=== PATIENT | female | born 1995 | race Caucasian/White ===

== ENCOUNTER → 2016-08-18 | Outpatient (CLI) | payer BC, OTHER ==
[2016-08-18 13:50] LABS: CH 30.6; CHCM 33.8; HCT 41.8 % (34.0-46.0); HDW 2.41; HGB 13.8 gm/dL (11.4-16.0); MCH 30.1 pg (25.0-35.0); MCHC 33.1 g/dL (31.0-37.0); MCV 90.8 fL (80.0-100.0); Mean Platelet Volume 6.8; RDW 12.3 % (11.5-15.5); WBC 7.4 k/uL (3.8-10.6)
[2016-08-18 16:06] LABS: Erythrocyte Sedimentation Rate 8 mm/hr (0-20)
[2016-08-19 14:01] LABS: Gliadin AB IgA, Deaminated 3 UNITS (<20); Gliadin AB IgG, Deaminated 4 UNITS (<20)
== END | disposition home or self-care (01) ==
LOC: LABWHC1 12:33
PROVIDERS: ATTEND Internal Medicine Gastroenterology
DX: R11.2 Nausea with vomiting, unspecified (principal)
CPT/HCPCS: 36415; 83516; 85027; 85652; 86140

== ENCOUNTER 2018-10-20 20:20 | Outpatient (CLI) | payer BC, OTHER ==
[2018-10-20 20:54] VITALS: BP 137/89; PULSE 83; RESP 16; TEMP 98.5
--- NOTE | 2018-10-30 07:47 | P.MSEPDOC ---
Presenting Problems - Arrival Data Date of Arrival on Unit: 10/20/18 Time of Arrival on Unit: 20:16 Mode of Transport: Ambulatory - Complaint OB-Reason for Admission/Chief Complaint: Pain Comment: pt was at work, a resident fell in to her abd and pt has had pain ever since Medical History - Information : 1 Para: 0 Term: 0 : 0 Abortions: Spontaneous or Elective: 0 Number of Living Children: 0 - Gestational Age Gestational Age by ROB (wks/days): 24 Weeks and 4 Days Review of Systems - Review of Systems Constitutional: No problems Breast: No problems ENT: No problems Cardiovascular: No problems Respiratory: No problems Gastrointestinal: No problems Genitourinary: No problems Musculoskeletal: No problems Neurological: No problems Skin: No problems Vital Signs - Temperature Temperature: 98.5 F Temperature Source: Temporal Artery Scan - Pulse Right Pulse Rate: 83 Pulse Assessment Method: Automatic Cuff - Respirations Respiratory Rate: 16 O2 Sat by Pulse Oximetry: 98 - Blood Pressure Right Arm Blood Pressure: 137/89 Blood Pressure Mean: 105 Blood Pressure Source: Automatic Cuff Medical Screen Scoring (Pre) - Cervical Exam Dilation: Exam Deferred Effacement: Exam Deferred - Uterine Contractions Frequency: N/A Duration: N/A Intensity: N/A - Maternal Vital Signs Maternal Temperature: N/A Maternal Blood Pressure: N/A Signs of Preeclampsia: N/A Maternal Respirations: N/A - Pain Assessment Pain Location and Character: Right, Abdomen Pain Scale Used: Numeric (1 - 10) Pain Intensity: 5 Pain Management Goal: 3 Pain Description: *Acute, Sore, Tender Pain Radiation Location: 0 Pain Frequency: Constant Pain Duration: 4 Pain Duration Units: Hours Pain Behavior: Vocalization Pain Aggravating Factors: None Pharmacological Interventions: PRN Medication - Maternal Trauma Maternal Trauma: N/A - Assessment Heart Rate - NICHD Category: Category I (Normal) = 0 - Total Score Total Score (Pre): 0 Physician Notification (Pre) - Physician Notified Physician Notified Date: 10/20/18 Physician Notified Time: 20:35 Physician/Practitioner Notifed:: Dr Pabon - Notification Comment Comment: spoke with Dr pabon. reported on pts c/o, pain since 0. no bleeding or leaking, +fm, no cntrx per pt or toco, abd soft and non tender. orders to keep on efm for 20 mins, and toco another 20 mins. pt may be d/c'd home with instructions after 40 mins. keep scheduled appt in office Disposition - Disposition OB Disposition: Discharge to home Discharge Date: 10/20/18 Discharge Time: 21:15 I agree with the RN Medical Screening Exam: Yes Risk & Benefit of care provided described in d/c instruction: Yes Diagnosis: UNSPECIFIED ABDOMINAL PAIN
== END 2018-10-20 21:15 | disposition home or self-care (01) ==
LOC: FBPOP 20:20
PROVIDERS: ATTEND Obstetrics & Gynecology
DX: O99.89 Other specified diseases and conditions complicating pregnancy, childbirth and the puerperium (principal); R10.9 Unspecified abdominal pain; Z3A.24 24 weeks gestation of pregnancy
CPT/HCPCS: 99213

== ENCOUNTER 2018-12-05 12:09 | Outpatient (CLI) | payer BC, OTHER ==
[2018-12-05 12:40] VITALS: BP 128/88; PULSE 112; RESP 18; TEMP 99.6
--- NOTE | 2018-12-14 17:12 | P.MSEPDOC ---
Presenting Problems - Arrival Data Date of Arrival on Unit: 12/05/18 Time of Arrival on Unit: 12:19 Mode of Transport: Ambulatory - Complaint OB-Reason for Admission/Chief Complaint: Other Comment: pt arrived to triage c/o pinkish dicharge when she wiped at 0130. than later in the day she noticed bright red blood and c/o cramping. pt did not wear a bj pad in and no blood noted in underwear. pt also c/o decreased movement Medical History - Information : 1 Para: 0 Term: 0 : 0 Abortions: Spontaneous or Elective: 0 Number of Living Children: 0 - Gestational Age Gestational Age by ROB (wks/days): 31 Weeks and 1 Days - History Complications: GDM Review of Systems - Review of Systems Constitutional: No problems Breast: No problems ENT: No problems Cardiovascular: No problems Respiratory: No problems Gastrointestinal: Diarrhea Genitourinary: No problems Musculoskeletal: No problems Neurological: No problems Skin: No problems Vital Signs - Temperature Temperature: 99.6 F Temperature Source: Oral - Pulse Right Brachial Pulse Rate: 112 Pulse Assessment Method: Automatic Cuff - Respirations Respiratory Rate: 18 Oxygen Delivery Method: Room Air O2 Sat by Pulse Oximetry: 97 - Blood Pressure Right Arm Blood Pressure: 128/88 Blood Pressure Mean: 101 Blood Pressure Source: Automatic Cuff Medical Screen Scoring (Pre) - Cervical Exam Dilation: 0 cm = 0 Membranes: Intact - Uterine Contractions Frequency: N/A Duration: N/A Intensity: Contraction palpated strong = 1 - Maternal Vital Signs Maternal Temperature: N/A Maternal Blood Pressure: N/A Signs of Preeclampsia: Headache = 1 Maternal Respirations: N/A - Pain Assessment Pain Location and Character: Head Pain Scale Used: Numeric (1 - 10) Pain Intensity: 5 Pain Management Goal: 2 Pain Description: Pressure Pain Radiation Location: n/a Pain Frequency: Occasional Pain Duration: 45 Pain Duration Units: Minutes Pain Behavior: Vocalization Pain Aggravating Factors: Anxiety Non-Pharmacological Interventions: Reduce Environmental Stimuli - Maternal Trauma Maternal Trauma: N/A - Total Score Total Score (Pre): 2 Medical Screen Scoring (Post) - Assessment Heart Rate: 140 Heart Rate - NICHD Category: Category I (Normal) = 0 NST: Reactive Position: N/A - Total Score Total Score (Post): 0 - Post Treatment Level of Risk Post Treatment Level of Risk: Low (0-5) Physician Notification (Post) - Physician Notified Physician Notified Date: 12/05/18 Physician Notified Time: 13:00 Spoke With: dr ana Gaines Order Received: Yes - Notification Comment Comment: reactive nst no active bleeding noted . cervix closed Disposition - Disposition OB Disposition: Discharge to home Discharge Date: 12/05/18 Discharge Time: 13:54 I agree with the RN Medical Screening Exam: Yes Risk & Benefit of care provided described in d/c instruction: Yes Diagnosis: ANTEPARTUM HEMORRHAGE, UNSPECIFIED, THIRD TRIMESTER
== END 2018-12-05 13:54 | disposition home or self-care (01) ==
LOC: FBPOP 12:09
PROVIDERS: ATTEND Obstetrics & Gynecology
DX: O46.93 Antepartum hemorrhage, unspecified, third trimester (principal); Z3A.31 31 weeks gestation of pregnancy
CPT/HCPCS: 59025; 99213

== ENCOUNTER 2019-01-25 11:33 | Inpatient (IN) | payer BC, OTHER ==
--- NOTE | 2019-01-25 12:47 | US ---
EXAMINATION TYPE: US OB BPP wo non-stress DATE OF EXAM: 01/25/2019 COMPARISON: NONE CLINICAL HISTORY: 23-year-old female non reactive nst. Decreased movement for 1 week but especially t alex, GD EXAM PERFORMED: Transabdominal (TA) FINDINGS: BPP PARAMETERS: PRESENTATION: Vertex HEART RATE: 150 bpm RHYTHM: Normal RAHEEL: 9.7cm DIAPHRAGM IMAGED: yes BPP SCORIN. Breathin (1 episode of breathing of 30 second duration in 30 minutes of scanning time) 2. Movement: 0 (at least 3 discrete body movements in 30 minutes) 3. Tone: 0, only saw big toe flex, not entire foot (1 episode of active flexion/extension of limb) 4. RAHEEL: 9.7cm (RAHEEL index > 5cm) IMPRESSION: TOTAL biophysical profile SCORE: 4 / 8 Lining Repairer notes: BERNARDINO Kam was aware of lack of movement/tone; told I could stop test 9 mins short
[2019-01-25] MEDS ORDERED: TERBUTALINE 1 MG/ML VIAL SQ PRN (13:53)
[2019-01-25] MEDS ORDERED: CARBOPROST TROMETHAMINE 250 MCG/ML 1 ML AMP IM PRN (13:53)
[2019-01-25] MEDS ORDERED: LIDOCAINE 0.5% (PF) 5 MG/ML (50 ML SDV) SQ PRN (13:53)
[2019-01-25] MEDS ORDERED: METHYLERGONOVINE 0.2 MG/ML 1 ML AMP IM PRN (13:53)
[2019-01-25] MEDS ORDERED: OXYTOCIN 10 UNIT/ML 1 ML VIAL IM PRN (13:53)
[2019-01-25 14:00] VITALS: BMI 35.5
[2019-01-25] MEDS ORDERED: OXYTOCIN 30 UNITS/500 ML NS 30 UNIT in SALINE 1 500ML.BAG IV SCH (14:00)
[2019-01-25 14:22] LABS: Glucose,Whole Blood 74 mg/dL (75-99)
[2019-01-25] MEDS: LACTATED RINGERS 1,000 ML IV SCH ×2 (14:34→22:30)
[2019-01-25 15:22] LABS: Basophils % (A) 0 %; Eosinophils % (A) 1 %; HCT 39.4 % (34.0-46.0); HGB 13.2 gm/dL (11.4-16.0); Lymphocytes # (A) 1.6 k/uL (1.0-4.8); Lymphocytes % (A) 18 %; MCH 32.5 pg (25.0-35.0); MCHC 33.5 g/dL (31.0-37.0); MCV 96.9 fL (80.0-100.0); Mean Platelet Volume 7.1; Monocytes # (A) 0.4 k/uL (0-1.0); Monocytes % (A) 5 %; Neutrophils # (A) 6.4 k/uL (1.3-7.7); Neutrophils % (A) 75 %; Platelet Count 226 k/uL (150-450); RBC 4.06 m/uL (3.80-5.40); RDW 12.7 % (11.5-15.5); WBC 8.5 k/uL (3.8-10.6)
[2019-01-25] MEDS ORDERED: ROPIVACAINE 5MG/ML 20ML VIAL ONE (23:37)
[2019-01-25] MEDS ORDERED: fentaNYL (PF) 50 MCG/ML 5 ML AMP ONE (23:37)
[2019-01-25] MEDS ORDERED: SODIUM CHLORIDE 0.9% 100 ML BAG ONE (23:37)
[2019-01-26] MEDS: LACTATED RINGERS 1,000 ML IV SCH ×2 (00:17→06:20)
[2019-01-26] MEDS ORDERED: CITRIC ACID-SODIUM CITRATE 15 ML CUP PO ONE ×2 (03:28→03:34)
[2019-01-26] MEDS ORDERED: ceFAZolin IN SWFI 2 GM/20 ML SYRINGE IVP ONE (03:34)
[2019-01-26] MEDS ORDERED: OXYTOCIN 10 UNIT/ML 1 ML VIAL ONE (03:47)
[2019-01-26] MEDS ORDERED: fentaNYL (PF) 50 MCG/ML 2 ML AMP ONE (03:47)
[2019-01-26] MEDS ORDERED: LIDOCAINE HCL/PF 20 MG/ML 10 ML AMP ONE (03:47)
[2019-01-26] MEDS ORDERED: MORPHINE SULFATE (PF) 0.3 MG/0.3 ML SYR ONE (03:47)
[2019-01-26] MEDS ORDERED: ONDANSETRON 4 MG/2 ML VIAL ONE (03:47)
[2019-01-26] MEDS ORDERED: METOCLOPRAMIDE 5 MG/ML 2 ML VIAL IVP PRN (04:36)
[2019-01-26] MEDS ORDERED: ONDANSETRON 4 MG/2 ML VIAL IVP PRN (04:36)
[2019-01-26] MEDS ORDERED: diphenhydrAMINE 50 MG/ML 1 ML VIAL IVP PRN ×3 (04:36→11:03)
[2019-01-26] MEDS ORDERED: ACETAMINOPHEN TAB 325 MG TAB PO PRN (04:36)
[2019-01-26] MEDS ORDERED: diphenhydrAMINE 25 MG CAP PO PRN (04:36)
[2019-01-26] MEDS ORDERED: HYDROcodone/APAP 7.5-325MG 1 EACH TAB PO PRN (04:36)
[2019-01-26] MEDS ORDERED: ZOLPIDEM 5 MG TAB PO PRN (04:36)
[2019-01-26] MEDS ORDERED: NALOXONE 0.4 MG/ML 1 ML VIAL IV PRN ×2 (04:36→11:03)
[2019-01-26] MEDS ORDERED: diphenhydrAMINE 50 MG CAP PO PRN (04:36)
--- NOTE | 2019-01-26 04:40 | P.HPOB ---
History of Present Illness H&P Date: 01/26/19 Chief Complaint: Intrauterine at term: Gestation diabetes: BPP 4 out of 8 Nemo is a 23-year-old at 38 and 3 who is in my office and had a nonstress test was nonreactive. While she did have phop-ih-baoq variability and a few small accelerations did not really meet criteria for reactivity. She was sent to labor and delivery for further monitoring, when she still not have any reactivity a by physical profile was done and was 4 out of 10. She had a long discussion on options and due to the fact that the NST was not reactive. Biophysical profile was only 4 out of 8 decision to move forward with induction of labor was made she was dilated to 1/2 cm 7080% effaced and -2 station. Artificial rupture membranes was then performed with clear fluid noted. Her Precis course has been, complicated by gestational diabetes for which she was diet-controlled, but did manage through maternal- medicine. Otherwise she relates no significant competitions or problems with the and all questions were answered for her at this time. Pertinent labs fluid A+ blood type, rubella immune, hepatitis B surface antigen was negative as was group B strep. On physical exam vital signs are stable and afebrile. Heart regular, lungs clear, extremities are without pain. Abdomen soft and gravid uterus is noted. A category 2 tracing is noted with continued good dndp-aa-hope variability and some tenderness 10 accelerations intermittently. No decelerati ons are noted the time of admission. Past Medical History Past Medical History: GERD/Reflux Additional Past Medical History / Comment(s): herpes S2, History of Any Multi-Drug Resistant Organisms: None Reported Past Surgical History: Adenoidectomy, Cholecystectomy, Tonsillectomy Past Anesthesia/Blood Transfusion Reactions: No Reported Reaction Past Psychological History: No Psychological Hx Reported Smoking Status: Never smoker Past Alcohol Use History: None Reported Past Drug Use History: None Reported - Past Family History Father History Unknown: Yes Family Medical History: No Reported History Medications and Allergies Home Medications Medication Instructions Recorded Confirmed Type Pnv,Calcium 72/Iron/Folic Acid 1 each PO DAILY 10/20/18 01/25/19 History [ Plus Tablet] Allergies Allergy/AdvReac Type Severity Reaction Status Date / Time azithromycin [From Zithromax] Allergy Nausea & Verified 06/28/19 13:55 Vomiting & Diarrhea butalbital Allergy Anaphylaxis Verified 01/25/19 13:55 latex Allergy Rash/Hives Verified 01/25/19 13:55 valacyclovir HCl Allergy Unknown Verified 01/25/19 13:55 [From Valtrex] Exam Osteopathic Statement: *. No significant issues noted on an osteopathic structural exam other than those noted in the History and Physical/Consult. Intake and Output 01/25/19 01/25/19 01/26/19 14:59 22:59 06:59 Other: # Voids 1 2 Weight 93.894 kg - OBG Physical Exam Breast: both: normal (no masses) Abdomen: bowel sounds normal, no diffuse tenderness, no bruit present, no guarding noted, no hepatomegaly, no splenomegaly, no mass Vulva: both: normal Vagina: normal moisture, no discharge Cervix: no lesion, no discharge Uterus: normal size, normal contour Adnexa: both: normal Anus/Rectum: normal perianal skin, no rectal mass, no hemorrhoids, heme negative Results Result Diagrams: 01/25/19 15:00 Abnormal Lab Results - Last 24 Hours (Table) 01/25/19 Range/Units 14:11 POC Glucose (mg/dL) 74 L (75-99) mg/dL
--- NOTE | 2019-01-26 04:46 | P.OP ---
Date of Procedure: 01/26/19 Preoperative Diagnosis: Intrauterine at term: Gestational diabetes: Nonreassuring heart tones with failure to dilate Postoperative Diagnosis: Same Procedure(s) Performed: Primary low transverse section from Pfannenstiel Anesthesia: epidural Surgeon: Blair Blandon Biodiesel Production Technician #1: Beryl Munson Estimated Blood Loss (ml): 500 IV fluids (ml): 700 Urine output (ml): 300 Pathology: other (Placenta) Condition: stable Disposition: floor Operative Findings: It is noted that following her epidural she had 1 prolonged deceleration lasting only approximately 3-4 minutes and return to baseline. However in the next couple of hours she made no further cervical change from 4-40 cm dilated and there was slow rise in the baseline heart rate to the 150s. There was minimal salx-lw-vnjm variability when the heart rate was noted except during contractions it appeared she was having some mild decelerations from the baseline of 150 down to the 130s. A prescription/benefits/alternatives to carla ji section were reviewed with the patient in detail and all questions were answered for her prior to proceeding to the operative room. Description of Procedure: Patient was taken to the operating room where a epidural anesthetic was found be adequate. She was prepped and draped in normal sterile fashion and placed in the dorsal supine position with leftward tilt. Initially a Pfannenstiel skin incision was made and this incision was then carried through to the underlying layer of the fascia was second knife. Fascia was then nicked in the midline and this opening was extended laterally with Li scissors. Superior and inferior aspect of this incision were then grasped tented up and bluntly and sharply dissected off the rectus muscles. Rectus muscles were then divided the midline and blunt dissection the peritoneum was made. This opening was then extended superiorly and inferiorly with good visualization of both bowel and bladder. Bladder blade was then placed bladder flap identified and entered with Metzenbaum scissors. This opening was then extended across the face of the uterus and the bladder flap was digitally created. Knife was then used to in cise uterus and this opening was fully developed with hemostat and then extended bluntly. Head was then atraumatically delivered from right occiput anterior position and once head was delivered mouth nares were bulb suctioned anterior posterior shoulders were easily delivered with gentle traction followed by the remainder the baby. Nursery personnel was then present to assume care and the umbilical cord was clamped and cut in usual fashion. Placenta was then delivered intact and Pitocin was added to the IV. Uterus was then exteriorized cleared of clots and debris and closed in 2 layers with 0 Vicryl suture. Once excellent hemostasis was obtained blood and debris was suctioned from the posterior cul-de-sac. Uterus was then reinserted into the abdomen and the peritoneum was closed with 3-0 Vicryl. Fascial layer was then closed Lobac suture. 3-0 Vicryl was then used to reapproximate the skin patient tolerated surgery very well. Sponge, lap, needle counts were all correct 2. Patient was then taken to the recovery room in stable and satisfactory condition. scores were 8 and 9 at one and 5 minutes respectively and the weight was 6 lbs. 12 oz. and skin was closed with 3-0 Vicryl subcuticularly. Patient tolerated the surgery very well. Sponge, lap, needle counts were all correct 2. She did deliver a viable female with scores 8 and 9 at one and 5 minutes respectively and the weight was 6 lbs. 12 oz. both mother and baby are stable following delivery.
[2019-01-26] MEDS ORDERED: OXYTOCIN 20 UNITS/1000 ML NS 1,000 ML IV SCH (06:15)
[2019-01-26] MEDS: KETOROLAC 30 MG/ML 1 ML VIAL IVP PRN ×2 (07:54→13:50)
[2019-01-26] MEDS: SENNOSIDES-DOCUSATE SODIUM 1 EACH TAB PO SCH ×2 (11:27→19:50)
--- NOTE | 2019-01-26 14:03 | P.MSEPDOC ---
Presenting Problems - Arrival Data Date of Arrival on Unit: 01/25/19 Time of Arrival on Unit: 11:30 Mode of Transport: Portable - Complaint Comment: pt sent over from office for a biophysical due to a non reactive nst in office Medical History - Information : 1 Para: 0 Term: 0 : 0 Abortions: Spontaneous or Elective: 0 Number of Living Children: 0 - Gestational Age Gestational Age by ROB (wks/days): 38 Weeks and 3 Days Vital Signs - Temperature Temperature: 99.1 F Temperature Source: Oral - Pulse Pulse Oximetery Pulse Rate: 80 Pulse Assessment Method: Pulse Oximetry - Respirations Respiratory Rate: 16 Oxygen Delivery Method: Room Air O2 Sat by Pulse Oximetry: 98 - Blood Pressure Right Arm Blood Pressure: 118/65 Blood Pressure Mean: 82 Blood Pressure Source: Automatic Cuff Disposition - Disposition OB Disposition: Admit I agree with the RN Medical Screening Exam: Yes Risk & Benefit of care provided described in d/c instruction: Yes Diagnosis: RELATED CONDITIONS, UNSPECIFIED, THIRD TRIMESTER (non reassuring fht)
[2019-01-27] MEDS: IBUPROFEN 600 MG TAB PO PRN ×3 (01:26→20:29)
--- NOTE | 2019-01-27 06:58 | P.PN ---
Progress Note - Text Progress Note Date: 01/27/19 Pt w/o complaints. Ambulating w/o complaints of paresthesia or weakness. Denies headache. Pruritis controlled. Pain controlled. Epidural site clean and dry. A/P POD#1 s/p with epidural duramorph - doing well
[2019-01-27 07:15] LABS: Basophils % (A) 0 %; Eosinophils # (A) 0.1 k/uL (0-0.7); Eosinophils % (A) 1 %; HGB 11.4 gm/dL (11.4-16.0); Lymphocytes # (A) 1.8 k/uL (1.0-4.8); Lymphocytes % (A) 15 %; MCH 32.3 pg (25.0-35.0); MCHC 33.5 g/dL (31.0-37.0); MCV 96.4 fL (80.0-100.0); Mean Platelet Volume 7.1; Monocytes # (A) 0.5 k/uL (0-1.0); Monocytes % (A) 4 %; Neutrophils # (A) 9.5 k/uL (1.3-7.7); Neutrophils % (A) 79 %; Platelet Count 185 k/uL (150-450); RBC 3.52 m/uL (3.80-5.40); WBC 12.1 k/uL (3.8-10.6)
[2019-01-27] MEDS: SENNOSIDES-DOCUSATE SODIUM 1 EACH TAB PO SCH ×2 (08:36→22:19)
--- NOTE | 2019-01-27 09:27 | P.PNOBGPC ---
Subjective - Subjective Principal diagnosis: Postop day 1 Interval history: Overall Nemo's doing very well postop day 1. She is involuting, voiding and tolerating her diet. She is also passing flatus. All questions are answered for this time. We'll plan discharged home tomorrow with continued improvement. Patient reports: Reports appetite normal, Reports voiding normally, Reports pain well controlled, Reports ambulating normally [place]: doing well Objective - Vital Signs Latest vital signs: Vital Signs Temp Pulse Resp BP Pulse Ox 01/27/19 08:00 98.5 F 72 16 114/68 01/27/19 06:00 16 01/27/19 04:00 99.5 F 95 16 117/72 01/27/19 03:42 16 01/27/19 02:00 16 01/27/19 00:00 99.5 F 95 16 117/72 01/26/19 22:00 16 01/26/19 20:00 98.0 F 90 16 118/65 97 01/26/19 15:21 98.2 F 74 16 143/65 99 01/26/19 14:03 99.1 F 80 16 118/65 98 01/26/19 14:03 20 97 01/26/19 14:00 97 01/26/19 12:00 98.3 F 78 20 129/64 96 Intake and Output 01/26/19 01/27/19 01/27/19 22:59 06:59 14:59 Other: # Voids 0 1 1 - Exam Lungs: bilateral: normal Chest: Normal S1, Normal S2 Extremities: Present: normal Abdomen: Present: normal appearance, soft. Absent: distention, tenderness Incision: Present: normal, dry, intact Uterus: Present: normal, firm - Labs Labs: Abnormal Lab Results - Last 24 Hours (Table) 01/27/19 Range/Units 06:57 WBC 12.1 H (3.8-10.6) k/uL RBC 3.52 L (3.80-5.40) m/uL Neutrophils # 9.5 H (1.3-7.7) k/uL
[2019-01-27] MEDS: LACTATED RINGERS 1,000 ML IV SCH ×6 (22:17→22:19)
[2019-01-28] MEDS: IBUPROFEN 600 MG TAB PO PRN (05:03)
[2019-01-28 05:28] VITALS: RESP 18
[2019-01-28 08:21] VITALS: BP 135/88; PULSE 94; TEMP 98.7
--- NOTE | 2019-01-28 08:30 | P.DS ---
Providers Date of admission: 01/25/19 12:58 Expected date of discharge: 01/28/19 Attending physician: Blair Blandon Primary care physician: Stated None - Discharge Diagnosis(es) (1) Status post primary low transverse section Current Visit: Yes Status: Acute Hospital Course: Patient presented for induction of labor after she had a nonreactive NST and a complete biophysical profile 4 out of 10. She underwent a primary low transverse for failure to progress. Her postoperative course was uncomplicated. She did have some swelling more in the right leg than the left leg but there was a negative Homans sign, there was no heat or pain behind the knee or calf area. Her swelling did resolve. Her pain is controlled with Motrin. She is tolerating regular diet and voiding and ambulating without difficulty. She'll be discharged home postoperative day #2 in stable condition to follow-up with me in one week. Plan - Discharge Summary New Discharge Prescriptions: New Ibuprofen [Motrin] 600 mg PO Q6HR PRN #30 tab PRN Reason: Mild Pain Or Fever >= 100.5 HYDROcodone/APAP 7.5-325MG [Adah 7.5-325] 1 each PO Q6H PRN #10 tab PRN Reason: Severe Pain No Action Pnv,Calcium 72/Iron/Folic Acid [ Plus Tablet] 1 each PO DAILY Discharge Medication List Pnv,Calcium 72/Iron/Folic Acid [ Plus Tablet] 1 each PO DAILY 10/20/18 [History] HYDROcodone/APAP 7.5-325MG [Adah 7.5-325] 1 each PO Q6H PRN #10 tab 01/28/19 [Rx] Ibuprofen [Motrin] 600 mg PO Q6HR PRN #30 tab 01/28/19 [Rx] Follow up Appointment(s)/Referral(s): Kandi Pabon DO [Doctor of Osteopathic Medicine] - 1 Week Discharge Disposition: HOME SELF-CARE
[2019-01-28] MEDS: SENNOSIDES-DOCUSATE SODIUM 1 EACH TAB PO SCH (08:52)
== END 2019-01-28 11:30 | disposition home or self-care (01) | DRG 788 ==
LOC: FBPOP 11:33 → 4FBP 12:58
PROVIDERS: ADMIT Obstetrics & Gynecology; ATTEND Obstetrics & Gynecology
PROC: 10D00Z1 Extraction of Products of Conception, Low, Open Approach (ICD-10-PCS; principal; 2019-01-25)
DX: O24.420 Gestational diabetes mellitus in childbirth, diet controlled (principal); O62.2 Other uterine inertia; O76 Abnormality in fetal heart rate and rhythm complicating labor and delivery; O99.62 Diseases of the digestive system complicating childbirth; K21.9 Gastro-esophageal reflux disease without esophagitis; O99.72 Diseases of the skin and subcutaneous tissue complicating childbirth; L29.9 Pruritus, unspecified; Z37.0 Single live birth; Z3A.38 38 weeks gestation of pregnancy; Z90.49 Acquired absence of other specified parts of digestive tract; Z88.8 Allergy status to other drugs, medicaments and biological substances; Z88.1 Allergy status to other antibiotic agents; Z91.040 Latex allergy status
CPT/HCPCS: 76819; 83036; 85025; 86850; 86900; 86901